=== PATIENT | female | born 1955 | race Caucasian/White ===

== ENCOUNTER 2018-05-22 23:37 | Emergency (ER) | payer OTHER ==
[2018-05-23] MEDS ORDERED: Sodium Chloride 0.9% 2.5 ML Syringe FLUSH PRN (00:26)
[2018-05-23] MEDS ORDERED: Sodium Chloride 0.9% 1,000 ML IV ONE (00:26)
[2018-05-23] MEDS ORDERED: Ondansetron 4 MG/2 ML SDV IVPUSH ONE (00:26)
[2018-05-23] MEDS ORDERED: Pantoprazole 40 MG Vial IVPUSH ONE (00:26)
[2018-05-23] MEDS ORDERED: Sodium Chloride 0.9% 10 ML Syringe FLUSH PRN (00:26)
--- NOTE | 2018-05-23 00:30 | EDM.PDOC ---
ED HPI GENERAL MEDICAL PROBLEM - General Chief Complaint: Gastrointestinal Problem Stated Complaint: PT VOMITING BLOOD Time Seen by Provider: 05/23/18 00:21 - History of Present Illness INITIAL COMMENTS - FREE TEXT/NARRATIVE: HISTORY AND PHYSICAL: History of present illness: The patient is a 63-year-old female with no GI or abdominal surgical history who presents with 3 days of abdominal pain that started mostly in the lower quadrants bilaterally and then this evening was up high in the upper quadrants bilaterally. She says she has a history of heartburn for which she takes over- the-counter meds but has never seen a doctor for evaluation and she also has an intermittent history of constipation but had a bowel movement that was normal today. She says her bowel movement was not black or bloody but tonight with the pain she had new onset of vomiting which she has not had over the last 3 days. Over the last 3 days she has not had any fevers chills chest pain or shortness of breath and no urinary complaints. The patient says that this evening about 2 hours ago she started having nausea and then had an episode of vomiting that there was a blood clot in it. She then had 2 subsequent vomitings which had blood in it and no food. She says that currently she is not having any pain. Not lightheaded or dizzy and has had no syncopal events. She has not taken anything specifically for the pain other than Excedrin and currently she feels better. Review of systems: As per history of present illness and below otherwise all systems reviewed and negative. Past medical history: As per history of present illness and as reviewed below otherwise noncontributory. Surgical history: As per history of present illness and as reviewed below otherwise noncontributory. Social history: No reported history of drug or alcohol abuse. Family history: As per history of present illness and as reviewed below otherwise noncontributory. Physical exam: General: Well-developed well-nourished female who is nontoxic and vital signs are noted by me. HEENT: Atraumatic, normocephalic, , negative for conjunctival pallor or scleral icterus, mucous membranes moist, throat clear, neck supple, nontender, trachea midline. Lungs: Clear to auscultation, breath sounds equal bilaterally, chest nontender. Heart: S1S2, regular rhythm and tachycardic rate on my evaluation but no overt murmurs Abdomen: Soft, nondistended, minimal tenderness in the left lower quadrant and suprapubic areas without rebound or guarding and no upper abdominal or epigastric tenderness on deep palpation. No sounds are hypoactive Negative for masses or hepatosplenomegaly. Negative for costovertebral tenderness. Pelvis: Stable nontender. Genitourinary: Deferred. Rectal: Deferred. Extremities: Atraumatic, negative for cords or calf pain. Neurovascular unremarkable. Neuro: Awake, alert, oriented. Cranial nerves II through XII unremarkable. Cerebellum unremarkable. Motor and sensory unremarkable throughout. Exam nonfocal. Diagnostics: EKG CBC CMP INR amylase lipase UA H. pylori CT scan of the abdomen and pelvis Therapeutics: IV fluids Zofran and Protonix The patient has been asymptomatic with no pain no nausea and no vomiting since she has been here in the ED. Explained to her the CT scan findings with the hepatic and renal cysts which are asymptomatic as well as the sliding gastric hiatal hernia and the early diverticulitis. There was no evidence of any pancreatic disease and as the patient is currently not having any upper abdominal pain nausea or vomiting I have no explanation for the lipase at 536. I will give the patient Zofran Protonix and Cipro and Flagyl to treat the findings that we do have and I stressed to her the need to increase fiber in her diet push hydration and avoid gastric irritating foods. I've also told her that she needs to return to the mid-level provider in our clinic for follow-up care as well as to follow-up with our surgery clinic for further endoscopy as needed and indicated. Advised on reasons to return Impression: Abdominal pain with several episodes of vomiting/hematemesis resolved, early diverticulitis, sliding gastric hiatal hernia Definitive disposition and diagnosis as appropriate pending reevaluation and review of above. - Related Data Allergies Allergy/AdvReac Type Severity Reaction Status Date / Time No Known Allergies Allergy Verified 05/22/18 23:55 Home Meds: Home Meds . [No Known Home Meds] 05/22/18 [History] Past Medical History HEENT History: Reports: Impaired Vision, Other (See Below) Other HEENT History: wears glasses Cardiovascular History: Reports: Hypertension Social & Family History - Family History Family Medical History: Noncontributory - Tobacco Use Smoking Status *Q: Never Smoker - Caffeine Use Caffeine Use: Reports: Coffee Caffeine Use Comment: 2 cups daily - Recreational Drug Use Recreational Drug Use: No ED ROS GENERAL - Review of Systems Review Of Systems: ROS reveals no pertinent complaints other than HPI. ED EXAM, GENERAL - Physical Exam Exam: See Below (See dictation) Course - Vital Signs Last Recorded V/S: Last Vital Signs Temp 36.3 C 05/23/18 02:52 Pulse 109 H 05/23/18 02:52 Resp 18 05/23/18 02:52 BP 142/100 H 05/23/18 02:52 Pulse Ox 100 05/23/18 02:52 - Orders/Labs/Meds Orders: Active Orders 24 hr Category Date Time Status EKG Documentation Completion [RC] STAT Care 05/23/18 00:26 Active Abdomen Pelvis w Cont [CT] Stat Exams 05/23/18 00:26 Taken Sodium Chloride 0.9% [Saline Flush] Med 05/23/18 00:26 Active 10 ml FLUSH ASDIRECTED PRN Sodium Chloride 0.9% [Saline Flush] Med 05/23/18 00:26 Active 2.5 ml FLUSH ASDIRECTED PRN Saline Lock Insert [OM.PC] Stat Oth 05/23/18 00:25 Ordered Medication Orders Sodium Chloride (Saline Flush) 10 ml FLUSH ASDIRECTED PRN PRN Reason: Keep Vein Open Sodium Chloride (Saline Flush) 2.5 ml FLUSH ASDIRECTED PRN PRN Reason: Keep Vein Open Labs: Laboratory Tests 05/23/18 05/23/18 05/23/18 Range/Units 00:10 00:10 00:10 WBC 8.32 (4.0-11.0) K/uL RBC 4.29 L (4.30-5.90) M/uL Hgb 13.1 (12.0-16.0) g/dL Hct 38.5 (36.0-46.0) % MCV 89.7 (80.0-98.0) fL MCH 30.5 (27.0-32.0) pg MCHC 34.0 (31.0-37.0) g/dL RDW Std Deviation 41.8 (28.0-62.0) fl RDW Coeff of Crow 13 (11.0-15.0) % Plt Count 224 (150-400) K/uL MPV 10.80 (7.40-12.00) fL Neut % (Auto) 73.5 (48.0-80.0) % Lymph % (Auto) 14.3 L (16.0-40.0) % Sawyer % (Auto) 10.0 (0.0-15.0) % Eos % (Auto) 2.0 (0.0-7.0) % Baso % (Auto) 0.2 (0.0-1.5) % Neut # (Auto) 6.1 H (1.4-5.7) K/uL Lymph # (Auto) 1.2 (0.6-2.4) K/uL Sawyer # (Auto) 0.8 (0.0-0.8) K/uL Eos # (Auto) 0.2 (0.0-0.7) K/uL Baso # (Auto) 0.0 (0.0-0.1) K/uL Nucleated RBC % 0.0 /100WBC Nucleated RBCs # 0 K/uL INR 1.02 Sodium 137 (136-145) mmol/L Potassium 3.9 (3.5-5.1) mmol/L Chloride 103 (98-107) mmol/L Carbon Dioxide 23.5 (21.0-32.0) mmol/L BUN 20 H (7.0-18.0) mg/dL Creatinine 1.2 H (0.6-1.0) mg/dL Est Cr Clr Drug Dosing 37.95 mL/min Estimated GFR (MDRD) 45.4 ml/min Glucose 115 H (74-106) mg/dL Calcium 10.4 H (8.5-10.1) mg/dL Total Bilirubin 0.4 (0.2-1.0) mg/dL AST 17 (15-37) IU/L ALT 24 (14-63) IU/L Alkaline Phosphatase 80 (46-116) U/L Total Protein 7.7 (6.4-8.2) g/dL Albumin 3.6 (3.4-5.0) g/dL Globulin 4.1 H (2.6-4.0) g/dL Albumin/Globulin Ratio 0.9 (0.9-1.6) Amylase 135 H (25-115) U/L Lipase 536 H (73-393) U/L Urine Color Urine Appearance Urine pH (5.0-8.0) Ur Specific [place] (1.001-1.035) Urine Protein (NEGATIVE) mg/dL Urine Glucose (UA) (NEGATIVE) mg/dL Urine Ketones (NEGATIVE) mg/dL Urine Occult Blood (NEGATIVE) Urine Nitrite (NEGATIVE) Urine Bilirubin (NEGATIVE) Urine Urobilinogen (<2.0) EU/dL Ur Leukocyte Esterase (NEGATIVE) Urine RBC (0-2/HPF) Urine WBC (0-5/HPF) Ur Epithelial Cells (NONE-FEW) Urine Bacteria (NEGATIVE) H. pylori IgG Antibody (NEG) 05/23/18 05/23/18 Range/Units 00:10 00:35 WBC (4.0-11.0) K/uL RBC (4.30-5.90) M/uL Hgb (12.0-16.0) g/dL Hct (36.0-46.0) % MCV (80.0-98.0) fL MCH (27.0-32.0) pg MCHC (31.0-37.0) g/dL RDW Std Deviation (28.0-62.0) fl RDW Coeff of Crow (11.0-15.0) % Plt Count (150-400) K/uL MPV (7.40-12.00) fL Neut % (Auto) (48.0-80.0) % Lymph % (Auto) (16.0-40.0) % Sawyer % (Auto) (0.0-15.0) % Eos % (Auto) (0.0-7.0) % Baso % (Auto) (0.0-1.5) % Neut # (Auto) (1.4-5.7) K/uL Lymph # (Auto) (0.6-2.4) K/uL Sawyer # (Auto) (0.0-0.8) K/uL Eos # (Auto) (0.0-0.7) K/uL Baso # (Auto) (0.0-0.1) K/uL Nucleated RBC % /100WBC Nucleated RBCs # K/uL INR Sodium (136-145) mmol/L Potassium (3.5-5.1) mmol/L Chloride (98-107) mmol/L Carbon Dioxide (21.0-32.0) mmol/L BUN (7.0-18.0) mg/dL Creatinine (0.6-1.0) mg/dL Est Cr Clr Drug Dosing mL/min Estimated GFR (MDRD) ml/min Glucose (74-106) mg/dL Calcium (8.5-10.1) mg/dL Total Bilirubin (0.2-1.0) mg/dL AST (15-37) IU/L ALT (14-63) IU/L Alkaline Phosphatase (46-116) U/L Total Protein (6.4-8.2) g/dL Albumin (3.4-5.0) g/dL Globulin (2.6-4.0) g/dL Albumin/Globulin Ratio (0.9-1.6) Amylase (25-115) U/L Lipase (73-393) U/L Urine Color YELLOW Urine Appearance CLEAR Urine pH 6.5 (5.0-8.0) Ur Specific [place] 1.010 (1.001-1.035) Urine Protein NEGATIVE (NEGATIVE) mg/dL Urine Glucose (UA) NEGATIVE (NEGATIVE) mg/dL Urine Ketones NEGATIVE (NEGATIVE) mg/dL Urine Occult Blood NEGATIVE (NEGATIVE) Urine Nitrite NEGATIVE (NEGATIVE) Urine Bilirubin NEGATIVE (NEGATIVE) Urine Urobilinogen 0.2 (<2.0) EU/dL Ur Leukocyte Esterase TRACE H (NEGATIVE) Urine RBC 0-1 (0-2/HPF) Urine WBC 1-3 (0-5/HPF) Ur Epithelial Cells RARE (NONE-FEW) Urine Bacteria RARE (NEGATIVE) H. pylori IgG Antibody NEGATIVE (NEG) Meds: Medications Generic Name Dose Route Start Last Admin Trade Name Eneida PRN Reason Stop Dose Admin Sodium Chloride 10 ml 05/23/18 00:26 Saline Flush FLUSH ASDIRECTED PRN Keep Vein Open Sodium Chloride 2.5 ml 05/23/18 00:26 Saline Flush FLUSH ASDIRECTED PRN Keep Vein Open Discontinued Medications Generic Name Dose Route Start Last Admin Trade Name Eneida PRN Reason Stop Dose Admin Sodium Chloride 1,000 mls @ 999 mls/hr 05/23/18 00:26 05/23/18 00:35 Normal Saline IV 05/23/18 01:26 999 mls/hr STAT ONE Administration Ondansetron HCl 4 mg 05/23/18 00:26 05/23/18 00:35 Zofran IVPUSH 05/23/18 00:27 4 mg ONETIME ONE Administration Pantoprazole Sodium 80 mg 05/23/18 00:26 05/23/18 00:35 Protonix Iv IVPUSH 05/23/18 00:27 80 mg .BOLUS ONE Administration Departure - Departure Time of Disposition: 03:01 Disposition: Home, Self-Care 01 Condition: Good Clinical Impression: Vomiting, Abdominal pain, Diverticulitis, Hiatal hernia - Discharge Information Referrals: PCP,None [Primary Care Provider] - Forms: ED Department Discharge Additional Instructions: The following information is given to patients seen in the emergency department who are being discharged to home. This information is to outline your options for follow-up care. We provide all patients seen in our emergency department with a follow-up referral. The need for follow-up, as well as the timing and circumstances, are variable depending upon the specifics of your emergency department visit. If you don't have a primary care physician on staff, we will provide you with a referral. We always advise you to contact your personal physician following an emergency department visit to inform them of the circumstance of the visit and for follow-up with them and/or the need for any referrals to a consulting specialist. The emergency department will also refer you to a specialist when appropriate. This referral assures that you have the opportunity for followup care with a specialist. All of these measure are taken in an effort to provide you with optimal care, which includes your followup. Under all circumstances we always encourage you to contact your private physician who remains a resource for coordinating your care. When calling for followup care, please make the office aware that this follow-up is from your recent emergency room visit. If for any reason you are refused follow-up, please contact the [facility] emergency department at and ask to speak to the emergency department charge nurse. [facility]General Surgery Professional Building [address] [place] [address] [address] [place] [address] [facility] Primary care- Internal Medicine and Family [facility] [address] [place] [id number] Please fill the prescription for all medications and take as directed. Push hydration and rest and please increase fiber in your diet. Please call and schedule a follow-up appointment with your provider in the clinic and also schedule an appointment in our surgery clinic for further evaluation for possible endoscopy. Return to ER as needed and as discussed but especially if the abdominal pain returns and you have any more vomiting of blood, fevers or inability to take fluids - My Orders Last 24 Hours: My Active Orders 05/23/18 00:25 Saline Lock Insert [OM.PC] Stat 05/23/18 00:26 EKG Documentation Completion [RC] STAT Abdomen Pelvis w Cont [CT] Stat Sodium Chloride 0.9% [Saline Flush] 10 ml FLUSH ASDIRECTED PRN Sodium Chloride 0.9% [Saline Flush] 2.5 ml FLUSH ASDIRECTED PRN - Assessment/Plan Last 24 Hours: My Active Orders 05/23/18 00:25 Saline Lock Insert [OM.PC] Stat 05/23/18 00:26 EKG Documentation Completion [RC] STAT Abdomen Pelvis w Cont [CT] Stat Sodium Chloride 0.9% [Saline Flush] 10 ml FLUSH ASDIRECTED PRN Sodium Chloride 0.9% [Saline Flush] 2.5 ml FLUSH ASDIRECTED PRN
[2018-05-23] MEDS ORDERED: Ciprofloxacin 500 MG Tab PO ONE (03:05)
--- NOTE | 2018-05-23 12:00 | CT ---
EXAM DATE: 05/22/18 PATIENT'S AGE: 63 Patient: AMPARO ESPINO Facility: [facility], [place], [place] : 1955 Study: CT Abdomen/Pelvis -05/23/2018 2:06:01 AM Ordering Physician: stephanie Final Report: INDICATION: Abdomen, pelvis pain, hematemesis. TECHNIQUE: CT Abdomen and pelvis with i.v. contrast. Coronal and sagittal reformats were obtained. CONTRAST: 50 mL Isovue 370 COMPARISON: None FINDINGS: Lower chest: Unremarkable. Liver: Multiple hepatic cysts present with the largest measuring 5.6 cm in diameter. Spleen: Unremarkable. Pancreas: Unremarkable. Gallbladder: Unremarkable. Kidney: There are numerous bilateral renal cysts present with the largest on the left measuring 8 cm in the largest on the right measuring 8.2 cm and contained thin calcification along its ramirez. Adrenal: Unremarkable. Bowel: Small moderate sliding type gastric hiatal hernia (type IV) is present. Moderate wall thickening is suspected in the sigmoid colon with numerous diverticula and faint inflammatory changes in the surrounding fat. The appendix is not identified. Vascular: Unremarkable. Lymph: Unremarkable. Peritoneum: Unremarkable. No pneumoperitoneum is seen. No significant ascites is noted. Pelvis: Unremarkable. Soft tissue: Unremarkable. Bone: Grade 1 anterolisthesis of L4-5 is seen. IMPRESSIONS: 1. Moderate wall thickening is suspected in the sigmoid colon with numerous diverticula and faint inflammatory changes in the surrounding fat. Findings likely due to acute diverticulitis and imaging follow up is recommended to document resolution. 2. Small moderate sliding type gastric hiatal hernia (type IV) is present. 3. There are numerous bilateral renal cysts present with the largest on the left measuring 8 cm in the largest on the right measuring 8.2 cm and contained thin calcification along its ramirez. Findings likely due to autosomal dominant polycystic kidney disease and correlation at Family history recommended. Dictated by Catarino Rojas MD @ 05/23/2018 2:48:27 AM Please note that all CT scans at this facility use dose modulation, iterative reconstruction, and/or weight-based dosing when appropriate to reduce radiation dose to as low as reasonably achievable. Dictated by: Catarino Rojas MD @ 05/23/2018 02:48:30 (Electronic Signature) Report Signed by Proxy. [facility]
== END 2018-05-23 03:25 | disposition home or self-care (01) ==
LOC: MW.ED 23:37
DX: K57.32 Diverticulitis of large intestine without perforation or abscess without bleeding (principal); K44.9 Diaphragmatic hernia without obstruction or gangrene; I10 Essential (primary) hypertension
CPT/HCPCS: 36415; 74177; 80053; 81001; 82150; 83690; 85025; 85610; 86677; 93005; 96361; 96374; 96375; 99284; C9113; J2405; J7040

== ENCOUNTER 2018-08-01 08:17 | Day surgery (SDC) | payer OTHER ==
[~2018-08-01 08:17] MED LIST: Lactated Ringers 1,000 ML IV SCH; Sodium Chloride 0.9% 10 ML SDV IV PRN; Sodium Chloride 0.9% 10 ML Syringe FLUSH PRN; Sodium Chloride 0.9% 2.5 ML Syringe FLUSH PRN
--- NOTE | 2018-08-01 08:43 | PCM.PREANE ---
Preanesthetic Assessment - Anesthesia/Transfusion/Family Hx Anesthesia History: No Prior Anesthesia Family History of Anesthesia Reaction: No Transfusion History: No Prior Transfusion(s) Intubation History: Unknown - Review of Systems General: No Symptoms Pulmonary: No Symptoms Cardiovascular: No Symptoms Gastrointestinal: Abdominal Pain, Difficulty Swallowing Neurological: No Symptoms Other: Reports: None - Physical Assessment O2 Sat by Pulse Oximetry: 100 Respiratory Rate: 18 Vital Signs: Last Vital Signs Temp 36.0 C 08/01/18 08:35 Pulse 96 08/01/18 08:35 Resp 18 08/01/18 08:35 BP 133/95 H 08/01/18 08:35 Pulse Ox 100 08/01/18 08:35 Height: 1.55 m Weight: 66.678 kg ASA Class: 2 Mental Status: Alert & Oriented x3 Airway Class: Mallampati = 2 Dentition: Reports: Normal Dentition, [place](s) (right side upper and lower (back )), Missing Tooth/Teeth (left back ) Thyro-Mental Finger Breadths: 3 Mouth Opening Finger Breadths: 3 ROM/Head Extension: Full Lungs: Clear to Auscultation, Normal Respiratory Effort Cardiovascular: Regular Rate, Regular Rhythm - Allergies Allergies/Adverse Reactions: Allergies Allergy/AdvReac Type Severity Reaction Status Date / Time No Known Allergies Allergy Verified 07/21/18 08:36 - Blood Blood Available: No - Anesthesia Plan Pre-Op Medication Ordered: None - Acknowledgements Anesthesia Type Planned: MAC Pt an Appropriate Candidate for the Planned Anesthesia: Yes Alternatives and Risks of Anesthesia Discussed w Pt/Guardian: Yes Pt/Guardian Understands and Agrees with Anesthesia Plan: Yes PreAnesthesia Questionnaire HEENT History: Reports: Impaired Vision, Other (See Below) Other HEENT History: wears glasses Cardiovascular History: Reports: Hypertension Respiratory History: Reports: None Gastrointestinal History: Reports: GERD, Hiatal Hernia, Other (See Below) Other Gastrointestinal History: diverticulitis Genitourinary History: Reports: Other (See Below) Other Genitourinary History: polycystic kidneys Musculoskeletal History: Reports: None Neurological History: Reports: None Psychiatric History: Reports: None Endocrine/Metabolic History: Reports: None Hematologic History: Reports: None Immunologic History: Reports: None Oncologic (Cancer) History: Reports: None Dermatologic History: Reports: None - Past Surgical History Head Surgeries/Procedures: Reports: None HEENT Surgical History: Reports: None Cardiovascular Surgical History: Reports: None Respiratory Surgical History: Reports: None GI Surgical History: Reports: None Female Surgical History: Reports: None Endocrine Surgical History: Reports: None Neurological Surgical History: Reports: None Musculoskeletal Surgical History: Reports: None Oncologic Surgical History: Reports: None Dermatological Surgical History: Reports: None - SUBSTANCE USE Smoking Status *Q: Never Smoker - HOME MEDS Home Medications: Home Meds Metoprolol Succinate 25 mg PO DAILY 07/21/18 [History] Pantoprazole Sodium 40 mg PO DAILY 07/21/18 [History] - CURRENT (IN HOUSE) MEDS Current Meds: Current Medications Lactated Ringer's (Ringers, Lactated) 1,000 mls @ 125 mls/hr IV ASDIRECTED EDUARDA Sodium Chloride (Saline Flush) 10 ml FLUSH ASDIRECTED PRN PRN Reason: Keep Vein Open Sodium Chloride (Saline Flush) 2.5 ml FLUSH ASDIRECTED PRN PRN Reason: Keep Vein Open Sodium Chloride (Saline Flush) 10 ml FLUSH ASDIRECTED PRN PRN Reason: Keep Vein Open Sodium Chloride (Saline Flush) 2.5 ml FLUSH ASDIRECTED PRN PRN Reason: Keep Vein Open Sodium Chloride (Normal Saline) 10 ml IV ASDIRECTED PRN PRN Reason: IV Use
[2018-08-01] MEDS ORDERED: Midazolam 1 MG/ML 2 ML SDV ONE (11:07)
[2018-08-01] MEDS ORDERED: fentaNYL 100 MCG/2 ML SDV ONE (11:07)
[2018-08-01] MEDS ORDERED: Propofol 200 MG/20 ML SDV ONE (11:07)
[2018-08-01] MEDS ORDERED: Ondansetron 4 MG/2 ML SDV ONE (11:07)
--- NOTE | 2018-08-01 12:07 | PCM.OPNOTE ---
- General Post-Op/Procedure Note Date of Surgery/Procedure: 08/01/18 Operative Procedure(s): Diagnostic EGD and colonoscopy Findings: Severe distal esophagitis, stricture at GE junction that I was unable to traverse, diverticulosis Pre Op Diagnosis: Hiatal hernia, esophageal stricture, colitis Post-Op Diagnosis: Hiatal hernia associated with esophagitis, esophageal stricture, diverticulosis Anesthesia Technique: [facility] [place] Primary Surgeon: Nieves Logan Condition: Good
--- NOTE | 2018-08-02 13:31 | OR ---
SURGEON: KENISHA CONNELLY MD DATE OF PROCEDURE: 08/01/2018 PREOPERATIVE DIAGNOSES: 1. Hiatal hernia. 2. Esophageal stricture. 3. Colitis. POSTOPERATIVE DIAGNOSES: 1. Hiatal hernia. 2. Severe esophagitis. 3. Esophageal stricture. 4. Diverticulosis. PROCEDURES PERFORMED: Diagnostic esophagogastroduodenoscopy and colonoscopy. ANESTHESIA: MAC. INSTRUMENT USED: Olympus endoscope and colonoscope. EXTENT OF EXAM: To the distal esophagus, to the cecum. PREPARATION: Good. LIMITATIONS: Severe esophagitis, and stricture of the esophagus. INDICATIONS: The patient is a 63-year-old female who presented to my clinic after recent visit to the emergency room. She has been having abdominal pain for three days associated with nausea and vomiting. Her vitals were stable at the time of her ER visit. She was found to have polycystic kidney disease, which runs in her family. She was also found to have a hiatal hernia with approximately 1/3rd of her stomach and her chest. She also had moderate thickening suspected within the sigmoid colon with numerous diverticula and faint inflammatory changes that was felt to be likely due to acute diverticulitis. She was started on Cipro and Flagyl as well as pantoprazole. After taking these medications, her abdominal pain resolved and her reflux has improved. She underwent a diagnostic esophagram, which showed severe stricturing of the distal esophagus. The patient and I discussed the need for diagnostic EGD and colonoscopy. I explained the procedure, expected perioperative course, and risks including bleeding, infection, or damage to surrounding structures including perforation. The patient verbalized understanding and wishes to proceed. PROCEDURE IN DETAIL: The patient was brought into the endoscopy suite and placed in a left lateral decubitus position. A time-out was completed verifying the patient's name, age, date of , allergies, and procedure to be performed. A bite block was placed in the patient's mouth. Monitored anesthesia care was induced and continuous oxygen was provided via nasal cannula throughout the procedure. After adequate sedation was achieved, a well lubricated endoscope was placed in the patient's mouth and advanced under direct visualization. Upon reaching the distal esophagus, I noted severe inflammation and a tight stricture. Multiple photographs of this were taken with normal imaging as well as narrow band imaging. Several biopsies were taken of the distal esophagus and sent to Pathology, labeled as esophagus. I was unable to transverse scope past the stricture and so I pulled the scope back. The proximal esophagus appeared normal. The scope was removed and this portion of procedure terminated. Digital rectal exam was then performed. This exam was within normal limits. A well lubricated colonoscope was inserted into the rectum and advanced under direct visualization to the level of cecum. This was somewhat difficult, given the tortuosity of her sigmoid colon. The cecum, however, was reached successfully. Identified it by both visual and anatomic landmarks. A photograph was taken of the cecal cap as well as with the scope retroflexed within the cecum. The scope was then straightened out and fully withdrawn while examining the color, texture, anatomy, and integrity of mucosa from the cecum to the anal canal. There was no evidence of any inflammation or masses within the sigmoid colon. There was multiple diverticula throughout. The scope was then brought into the rectum and retroflexed to allow visualization of the anal canal opening. This appeared normal and a photograph was taken. The scope was then straightened out and fully withdrawn. The cecum to anus time was 7 minutes. The patient tolerated the procedure well and was taken to PACU in stable condition. ENDOSCOPIC DIAGNOSES: 1. Hiatal hernia. 2. Severe esophagitis. 3. Esophageal stricture. 4. Diverticulosis. RECOMMENDATIONS: The patient should continue on pantoprazole. I will follow up with her regarding the biopsy result in the next steps in management of her hiatal hernia, which is causing an esophageal stricture and severe esophagitis. LEVY PULIDO /[id number]
== END 2018-08-01 12:48 | disposition home or self-care (01) ==
LOC: MW.SDS 08:17
PROVIDERS: ATTEND Surgery
DX: K22.2 Esophageal obstruction (principal); K22.10 Ulcer of esophagus without bleeding; K44.9 Diaphragmatic hernia without obstruction or gangrene; K57.30 Diverticulosis of large intestine without perforation or abscess without bleeding; I10 Essential (primary) hypertension; Q61.3 Polycystic kidney, unspecified; Z87.19 Personal history of other diseases of the digestive system; Z79.899 Other long term (current) drug therapy
CPT/HCPCS: 43202; 45378; J2001; J2250; J2405; J2704; J3010; J7120; 88305

== ENCOUNTER 2018-11-09 08:59 | Day surgery (SDC) | payer OTHER ==
--- NOTE | 2018-11-09 09:38 | PCM.PREANE ---
Preanesthetic Assessment - Anesthesia/Transfusion/Family Hx Anesthesia History: Prior Anesthesia Without Reaction Family History of Anesthesia Reaction: No Transfusion History: No Prior Transfusion(s) Intubation History: Unknown - Review of Systems General: No Symptoms Pulmonary: No Symptoms Cardiovascular: No Symptoms Gastrointestinal: No Symptoms Neurological: No Symptoms Other: Reports: None - Physical Assessment Height: 5 ft 2 in Weight: 71.214 kg ASA Class: 2 Mental Status: Alert & Oriented x3 Airway Class: Mallampati = 2 Dentition: Reports: Normal Dentition ROM/Head Extension: Full Lungs: Clear to Auscultation, Normal Respiratory Effort Cardiovascular: Regular Rate, Regular Rhythm - Allergies Allergies/Adverse Reactions: Allergies Allergy/AdvReac Type Severity Reaction Status Date / Time No Known Allergies Allergy Verified 11/06/18 09:50 - Blood Blood Available: No - Anesthesia Plan Pre-Op Medication Ordered: None - Acknowledgements Anesthesia Type Planned: General Anesthesia Pt an Appropriate Candidate for the Planned Anesthesia: Yes Alternatives and Risks of Anesthesia Discussed w Pt/Guardian: Yes Pt/Guardian Understands and Agrees with Anesthesia Plan: Yes Additional Comments: anes prob list: htn PLAN: tiva PreAnesthesia Questionnaire HEENT History: Reports: Glaucoma, Impaired Vision, Other (See Below) Other HEENT History: wears glasses Cardiovascular History: Reports: Hypertension Respiratory History: Reports: None Gastrointestinal History: Reports: GERD, Hiatal Hernia, Pancreatitis, Other ( See Below) Other Gastrointestinal History: diverticulitis, hx of Esophageal structure Genitourinary History: Reports: Other (See Below) Other Genitourinary History: polycystic kidneys Musculoskeletal History: Reports: Fracture Other Musculoskeletal History: hx of fx finger as a child Neurological History: Reports: Other (See Below) Other Neuro History: hx of motion sickness Psychiatric History: Reports: None Endocrine/Metabolic History: Reports: None, Osteopenia Hematologic History: Reports: None Immunologic History: Reports: None Oncologic (Cancer) History: Reports: None Dermatologic History: Reports: None - Past Surgical History Head Surgeries/Procedures: Reports: None HEENT Surgical History: Reports: None Cardiovascular Surgical History: Reports: None Respiratory Surgical History: Reports: None GI Surgical History: Reports: Colonoscopy, EGD Female Surgical History: Reports: None Endocrine Surgical History: Reports: None Neurological Surgical History: Reports: None Musculoskeletal Surgical History: Reports: None Oncologic Surgical History: Reports: None Dermatological Surgical History: Reports: None - SUBSTANCE USE Smoking Status *Q: Never Smoker Recreational Drug Use History: No - HOME MEDS Home Medications: Home Meds Metoprolol Succinate 25 mg PO QAM 07/21/18 [History] Pantoprazole Sodium 40 mg PO DAILY 07/21/18 [History] Alendronate Sodium 70 mg PO WEEKLY 11/06/18 [History] - CURRENT (IN HOUSE) MEDS Current Meds: Current Medications Lactated Ringer's (Ringers, Lactated) 1,000 mls @ 125 mls/hr IV ASDIRECTED EDUARDA Sodium Chloride (Saline Flush) 10 ml FLUSH ASDIRECTED PRN PRN Reason: Keep Vein Open Sodium Chloride (Saline Flush) 2.5 ml FLUSH ASDIRECTED PRN PRN Reason: Keep Vein Open Sodium Chloride (Normal Saline) 10 ml IV ASDIRECTED PRN PRN Reason: IV Use
[2018-11-09] MEDS ORDERED: Propofol 200 MG/20 ML SDV ONE (10:43)
[2018-11-09] MEDS ORDERED: Lidocaine 2% 5 ML SDV ONE (10:44)
--- NOTE | 2018-11-09 13:18 | PCM.OPNOTE ---
- General Post-Op/Procedure Note Date of Surgery/Procedure: 11/09/18 Operative Procedure(s): Diagnostic EGD Findings: Severe ulceration and stricture at the GE junction Pre Op Diagnosis: Hiatal hernia with esophagitis and GERD and stricture Post-Op Diagnosis: same Anesthesia Technique: MAC Primary Surgeon: Nieves Logan Condition: Good Free Text/Narrative:: Intake & Output 11/08/18 11/09/18 11/09/18 22:59 06:59 14:59 Intake Total 750 Balance 750
--- NOTE | 2018-11-10 12:16 | OR ---
SURGEON: NIEVES LOGAN MD DATE OF PROCEDURE: 11/09/2018 PREOPERATIVE DIAGNOSIS: Hiatal hernia with gastroesophageal reflux disease and esophagitis. POSTOPERATIVE DIAGNOSIS: Hiatal hernia with gastroesophageal reflux disease and esophagitis. PROCEDURE PERFORMED: Diagnostic esophagogastroduodenoscopy. PRIMARY SURGEON: Nieves Logan MD. ANESTHESIA: MAC. INSTRUMENT USED: Olympus endoscope. EXTENT OF EXAM: To the distal esophagus. PREPARATION: Good. LIMITATIONS: Stricture at the level of the GE junction. INDICATIONS: The patient is a 63-year-old female on whom I performed a diagnostic EGD 3 months ago. She was found to have a hiatal hernia associated with severe esophagitis and GERD. She also had a stricture at the GE junction that I was unable to transverse. The patient has been on pantoprazole daily for the last 2 months and reports an improvement in her pain and swallowing. The decision was made to proceed with a repeat EGD to ensure that things have healed. I explained the procedure, expected perioperative course, and risks including bleeding, infection, or damage to surrounding structures including perforation. The patient verbalized understanding and wishes to proceed. PROCEDURE IN DETAIL: The patient was brought into the endoscopy suite and placed in a beach chair position. A time-out was completed verifying the patient's name, age, date of , allergies, and procedure to be performed. A bite block was placed in the patient's mouth. Monitored anesthesia care was induced and continuous oxygen was provided via nasal cannula throughout the procedure. After adequate sedation was achieved, a well lubricated endoscope was placed in the patient's mouth and advanced under direct visualization into the esophagus. Upon reaching the distal esophagus, I again noted severe inflammation of the mucosa. There were ulcers and stricture that I was unable to transverse at the GE junction. Multiple photographs of this were taken. Biopsies were taken again along the ulcerated and friable tissue. These were sent to Pathology, labeled as esophageal biopsy. I closely monitored my biopsy sites. Once hemostasis was ensured, I then removed the scope. The patient tolerated the procedure well and was transferred to the PACU in stable condition. ENDOSCOPIC DIAGNOSIS: Hiatal hernia with gastroesophageal reflux disease and esophagitis. RECOMMENDATIONS: We will follow up with the patient in clinic in 2 weeks to discuss her biopsy results. She will likely need a referral to a mail carriers supervisor and/or surgeon to discuss the next steps in treatment. LEVY PULIDO /[id number]
== END 2018-11-09 11:53 | disposition home or self-care (01) ==
LOC: MW.SDS 08:59
PROVIDERS: ATTEND Surgery
DX: K21.0 Gastro-esophageal reflux disease with esophagitis (principal); K22.10 Ulcer of esophagus without bleeding; K22.2 Esophageal obstruction; K44.9 Diaphragmatic hernia without obstruction or gangrene; I10 Essential (primary) hypertension; M85.80 Other specified disorders of bone density and structure, unspecified site; Z79.899 Other long term (current) drug therapy
CPT/HCPCS: 00731; J2001; J2704

== ENCOUNTER 2019-09-05 15:04 | Emergency (ER) | payer OTHER ==
--- NOTE | 2019-09-05 16:00 | EDM.PDOC ---
ED HPI GENERAL MEDICAL PROBLEM - General Chief Complaint: Head Injury Stated Complaint: FELL HURT RT WRIST AND LEG Time Seen by Provider: 09/05/19 15:06 Source of Information: Reports: Patient History Limitations: Reports: No Limitations - History of Present Illness INITIAL COMMENTS - FREE TEXT/NARRATIVE: HISTORY AND PHYSICAL: History of present illness: Patient is a 64-year-old female who presents to the ED today with concern of a fall that occurred just prior to arrival to the ED. Patient states she was outside and wearing flip-flops and her shoe caught the crack of the sidewalk and she fell. Patient states she landed on her knees and tried to catch herself with her right hand but did hit her chin on the cement. Patient denies any loss of consciousness during the event and states that she did not feel dizzy or lightheaded before the fall. Patient states the most pain is her right wrist and her right knee but states that her left knee is also bothering her. Patient denies any health history or any other symptoms or concerns. Patient states she does not take any blood thinning medication. Patient denies fever, chills, chest pain, shortness of breath, or cough. Denies headache, neck stiff ness, change in vision, syncope, or near syncope. Denies nausea, vomiting, abdominal pain, diarrhea, constipation, or dysuria. Has not noted any blood in urine or stool. Patient has been eating and drinking appropriately. Review of systems: As per history of present illness and below otherwise all systems reviewed and negative. Past medical history: As per history of present illness and as reviewed below otherwise noncontributory. Surgical history: As per history of present illness and as reviewed below otherwise noncontributory. Social history: See social history for further information Family history: As per history of present illness and as reviewed below otherwise noncontributory. Physical exam: General: Patient is alert, oriented, and in no acute distress. Patient sitting comfortably on exam table and did ambulate into the ED today. HEENT: There is a 1 cm circular bruise/contusion over the chin without bleeding or laceration. No crepitus/step offs to palpation of this area. Otherwise, atraumatic, normocephalic, pupils equal and reactive bilaterally, negative for conjunctival pallor or scleral icterus, mucous membranes moist, TMs normal bilaterally, throat clear, neck supple, nontender, trachea midline. No drooling or trismus noted. No meningeal signs. No hot potato voice noted. Lungs: Clear to auscultation, breath sounds equal bilaterally, chest nontender. Heart: S1S2, regular rate and rhythm without overt murmur Abdomen: Soft, nondistended, nontender. Negative for masses or hepatosplenomegaly. Negative for costovertebral tenderness. Pelvis: Stable nontender. Genitourinary: Deferred. Rectal: Deferred. Skin: Intact, warm, dry. No lesions or rashes noted. Extremities/musculoskeletal: Superficial abrasions to bilateral knees without bleeding. No obvious deformity of the bilateral upper or lower extremities. Patient does have full ROM of all extremities without deficit but does have pain with ROM of the right knee and right wrist. Dorsalis pedis and posterior tibial pulses are grossly intact bilaterally with capillary refill less than 2 seconds. Radial pulses are grossly intact bilaterally with capillary refill less than 2 seconds. Otherwise, atraumatic, negative for cords or calf pain. Neurovascular unremarkable. No obvious deformity of the complete spine. No step-offs, crepitus, or point tenderness to palpation of the complete spine. Neuro: Awake, alert, oriented. Cranial nerves II through XII unremarkable. Cerebellum unremarkable. Motor and sensory unremarkable throughout. Exam nonfocal. Notes: Discussed the importance for follow-up with primary care provider. Voices understanding and is agreeable to plan of care. Denies any further questions or concerns at this time. Diagnostics: Bilateral knee XR (Patient declines XR of left knee), right wrist XR, CXR, CBC, CMP, Trop, EKG, lipase, UA Therapeutics: Right knee sleeve, PREM wrap Prescription: None Impression: Right wrist injury Bilateral knee injury Superficial abrasion, bilateral knee Plan: 1. Rest, ice, elevate the affected extremity/areas. You can apply ice 15 minutes on, 15 minutes off. 2. Tylenol and/or Ibuprofen as directed for pain management or discomfort. 3. Follow up with the primary care provider as discussed. Return to the ED as needed and as discussed. Definitive disposition and diagnosis as appropriate pending reevaluation and review of above. right knee/wrist Pain Score (Numeric/FACES): 8 - Related Data Allergies Allergy/AdvReac Type Severity Reaction Status Date / Time No Known Allergies Allergy Verified 11/06/18 09:50 Home Meds: Home Meds RX: Metoprolol Succinate 25 mg PO QAM 07/21/18 [History] RX: Pantoprazole Sodium 40 mg PO DAILY 07/21/18 [History] RX: Alendronate Sodium 70 mg PO WEEKLY 11/06/18 [History] Past Medical History HEENT History: Reports: Glaucoma, Impaired Vision, Other (See Below) Other HEENT History: wears glasses Cardiovascular History: Reports: Hypertension Respiratory History: Reports: None Gastrointestinal History: Reports: GERD, Hiatal Hernia, Pancreatitis, Other ( See Below) Other Gastrointestinal History: diverticulitis, hx of Esophageal structure Genitourinary History: Reports: Other (See Below) Other Genitourinary History: polycystic kidneys 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 Musculoskeletal History: Reports: Fracture Other Musculoskeletal History: hx of fx finger as a child Neurological History: Reports: Other (See Below) Other Neuro History: hx of motion sickness Psychiatric History: Reports: None Endocrine/Metabolic History: Reports: None, Osteopenia Hematologic History: Reports: None Immunologic History: Reports: None Oncologic (Cancer) History: Reports: None Dermatologic History: Reports: None - Infectious Disease History Infectious Disease History: Reports: Chicken Pox, Measles, Mumps - Past Surgical History Head Surgeries/Procedures: Reports: None HEENT Surgical History: Reports: None Cardiovascular Surgical History: Reports: None Respiratory Surgical History: Reports: None GI Surgical History: Reports: Colonoscopy, EGD Female Surgical History: Reports: None Endocrine Surgical History: Reports: None Neurological Surgical History: Reports: None Musculoskeletal Surgical History: Reports: None Oncologic Surgical History: Reports: None Dermatological Surgical History: Reports: None Social & Family History - Family History Family Medical History: Noncontributory - Tobacco Use Smoking Status *Q: Never Smoker Second Hand Smoke Exposure: No - Caffeine Use Caffeine Use: Reports: None Caffeine Use Comment: 2 cups daily - Recreational Drug Use Recreational Drug Use: No ED ROS GENERAL - Review of Systems Review Of Systems: Comprehensive ROS is negative, except as noted in HPI. ED EXAM, HEAD INJURY - Physical Exam Exam: See Below (see dictation) Course - Vital Signs Last Recorded V/S: Last Vital Signs Temp 96.6 F L 09/05/19 15:30 Pulse 100 09/05/19 15:30 Resp 18 09/05/19 15:30 BP 133/88 09/05/19 15:30 Pulse Ox 100 09/05/19 15:30 - Orders/Labs/Meds Orders: Active Orders 24 hr Category Date Time Status EKG Documentation Completion [RC] STAT Care 09/05/19 15:40 Active UA RFX OMERO AND CULT IF INDIC [URIN] Stat Lab 09/05/19 15:40 Ordered Labs: Laboratory Tests 09/05/19 09/05/19 Range/Units 15:49 15:49 WBC 5.90 (4.0-11.0) K/uL RBC 4.07 L (4.30-5.90) M/uL Hgb 11.7 L (12.0-16.0) g/dL Hct 35.8 L (36.0-46.0) % MCV 88.0 (80.0-98.0) fL MCH 28.7 (27.0-32.0) pg MCHC 32.7 (31.0-37.0) g/dL RDW Std Deviation 43.8 (28.0-62.0) fl RDW Coeff of Crow 14 (11.0-15.0) % Plt Count 194 (150-400) K/uL MPV 10.90 (7.40-12.00) fL Neut % (Auto) 74.1 (48.0-80.0) % Lymph % (Auto) 16.6 (16.0-40.0) % [place] % (Auto) 7.3 (0.0-15.0) % Eos % (Auto) 1.7 (0.0-7.0) % Baso % (Auto) 0.3 (0.0-1.5) % Neut # (Auto) 4.4 (1.4-5.7) K/uL Lymph # (Auto) 1.0 (0.6-2.4) K/uL [place] # (Auto) 0.4 (0.0-0.8) K/uL Eos # (Auto) 0.1 (0.0-0.7) K/uL Baso # (Auto) 0.0 (0.0-0.1) K/uL Nucleated RBC % 0.0 /100WBC Nucleated RBCs # 0 K/uL Sodium 136 (136-145) mmol/L Potassium 4.2 (3.5-5.1) mmol/L Chloride 102 (98-107) mmol/L Carbon Dioxide 25.5 (21.0-32.0) mmol/L BUN 29 H (7.0-18.0) mg/dL Creatinine 1.0 (0.6-1.0) mg/dL Est Cr Clr Drug Dosing 44.95 mL/min Estimated GFR (MDRD) 55.8 ml/min Glucose 125 H (74-106) mg/dL Calcium 8.9 (8.5-10.1) mg/dL Total Bilirubin 0.2 (0.2-1.0) mg/dL AST 21 (15-37) IU/L ALT 25 (14-63) IU/L Alkaline Phosphatase 76 (46-116) U/L Troponin I < 0.050 (0.000-0.056) ng/mL Total Protein 6.9 (6.4-8.2) g/dL Albumin 3.6 (3.4-5.0) g/dL Globulin 3.3 (2.6-4.0) g/dL Albumin/Globulin Ratio 1.1 (0.9-1.6) Lipase 365 (73-393) U/L Departure - Departure Time of Disposition: 16:44 Disposition: Home, Self-Care 01 Clinical Impression: Superficial abrasion Wrist injury Qualifiers: Encounter type: initial encounter Laterality: right Qualified Code(s): S69.91XA - Unspecified injury of right wrist, hand and finger(s), initial encounter Knee injury Qualifiers: Encounter type: initial encounter Laterality: unspecified laterality Qualified Code(s): S89.90XA - Unspecified injury of unspecified lower leg, initial encounter - Discharge Information Referrals: Courtney Mariscal PA [Primary Care Provider] - Forms: ED Department Discharge Additional Instructions: The following information is given to patients seen in the emergency department who are being discharged to home. This information is to outline your options for follow-up care. We provide all patients seen in our emergency department with a follow-up referral. The need for follow-up, as well as the timing and circumstances, are variable depending upon the specifics of your emergency department visit. If you don't have a primary care physician on staff, we will provide you with a referral. We always advise you to contact your personal physician following an emergency department visit to inform them of the circumstance of the visit and for follow-up with them and/or the need for any referrals to a consulting specialist. The emergency department will also refer you to a specialist when appropriate. This referral assures that you have the opportunity for follow-up care with a specialist. All of these measure are taken in an effort to provide you with optimal care, which includes your follow-up. Under all circumstances we always encourage you to contact your private physician who remains a resource for coordinating your care. When calling for follow-up care, please make the office aware that this follow-up is from your recent emergency room visit. If for any reason you are refused follow-up, please contact the [facility] Emergency Department at and asked to speak to the emergency department charge nurse. [facility] [address] [place], [place] [id number] [place] [address] 1. Rest, ice, elevate the affected extremity/areas. You can apply ice 15 minutes on, 15 minutes off. 2. Tylenol and/or Ibuprofen as directed for pain management or discomfort. 3. Follow up with the primary care provider as discussed. Return to the ED as needed and as discussed. Sepsis Event Note - Evaluation Sepsis Screening Result: No Definite Risk - Focused Exam Vital Signs: Vital Signs Temp Pulse Resp BP Pulse Ox 09/05/19 15:30 96.6 F L 100 18 133/88 100 Date Exam was Performed: 09/05/19 Time Exam was Performed: 16:46 - My Orders Last 24 Hours: My Active Orders 09/05/19 15:40 EKG Documentation Completion [RC] STAT UA RFX OMERO AND CULT IF INDIC [URIN] Stat - Assessment/Plan Last 24 Hours: My Active Orders 09/05/19 15:40 EKG Documentation Completion [RC] STAT UA RFX OMERO AND CULT IF INDIC [URIN] Stat
[2019-09-05 16:19] LABS: CARBON DIOXIDE,CO2 25.5 mmol/L (21.0-32.0); CHLORIDE,CL 102 mmol/L (98-107); GLUCOSE RANDOM 125 mg/dL (74-106); LIPASE 365 U/L (73-393); POTASSIUM,K 4.2 mmol/L (3.5-5.1); SODIUM,NA 136 mmol/L (136-145)
[2019-09-05 16:26] LABS: BLOOD UREA NITROGEN,BUN 29 mg/dL (7.0-18.0)
--- NOTE | 2019-09-05 16:39 | CR ---
Chest: Portable view of the chest was obtained. Comparison: No prior chest imaging. Heart size and mediastinum are within normal limits for portable technique. Lungs are clear with no acute parenchymal change. Bony structures are grossly intact. Impression: 1. Nothing acute is appreciated on portable chest x-ray. Diagnostic code #1 This report was dictated in MDT
--- NOTE | 2019-09-05 16:40 | CR ---
Right wrist: 3 views of the right wrist were obtained. Comparison: No previous wrist study. Joint spaces within the wrist are preserved. No fracture, dislocation or other bony abnormality is seen. Impression: 1. No abnormality is identified on right wrist exam. Diagnostic code #1 This report was dictated in MDT
--- NOTE | 2019-09-05 16:40 | CR ---
Right knee: AP, lateral and sunrise patellar views of the right knee were obtained. Small calcified loose body identified anteriorly within the lateral knee. Small joint effusion is seen. Patellofemoral joint appears normal. No fracture or other bony abnormality is appreciated. Impression: 1. Small calcified loose body as described above. 2. Small joint effusion. Diagnostic code #3 This report was dictated in MDT
== END 2019-09-05 17:02 | disposition home or self-care (01) ==
LOC: MW.ED 15:04
DX: S00.83XA Contusion of other part of head, initial encounter (principal); S80.212A Abrasion, left knee, initial encounter; S80.211A Abrasion, right knee, initial encounter; S69.91XA Unspecified injury of right wrist, hand and finger(s), initial encounter; I10 Essential (primary) hypertension; K21.9 Gastro-esophageal reflux disease without esophagitis; Z79.899 Other long term (current) drug therapy; W19.XXXA Unspecified fall, initial encounter
CPT/HCPCS: 36415; 71045; 71045-26; 73110-26-RT; 73110-RT; 73562-26-RT; 73562-RT; 80053; 83690; 84484; 85025; 93005; 99284; 99284-25

== ENCOUNTER 2024-07-08 20:47 | Emergency (ER) | payer MEDICARE, OTHER ==
[2024-07-08] MEDS ORDERED: Sodium Chloride 0.9% 2.5 ML Syringe FLUSH PRN (21:07)
[2024-07-08] MEDS ORDERED: Sodium Chloride 0.9% 10 ML Syringe FLUSH PRN (21:07)
[2024-07-08] MEDS: Morphine 4 MG/ML Syringe IVPUSH ONE ×3 (21:16→23:41)
[2024-07-08] MEDS: Ondansetron 4 MG/2 ML SDV IVPUSH ONE (21:16)
[2024-07-08 21:25] LABS: BASOPHILS ABSOLUTE AUTO 0.04 K/uL (0.00-0.20); BASOPHILS PERCENT AUTO 0.6 % (0.0-1.0); EOSINOPHILS ABSOLUTE AUTO 0.09 K/uL (0.00-0.45); EOSINOPHILS PERCENT AUTO 1.4 % (0.0-6.0); HEMATOCRIT 35.8 % (37.0-47.0); HEMOGLOBIN 12.4 g/dL (12.0-16.0); IMMATURE GRAN ABSOLUTE AUTO 0.02 K/uL (0.00-0.05); IMMATURE GRAN PERCENT AUTO 0.3 % (0.0-0.4); LYMPHOCYTES ABSOLUTE AUTO 1.55 K/uL (1.00-4.80); LYMPHOCYTES PERCENT AUTO 23.9 % (24.0-44.0); MEAN CORPUSCULAR HEMOGLOBIN 31.2 pg (28.0-32.0); MEAN CORPUSCULAR HGB CONC 34.6 g/dL (32.0-36.0); MEAN CORPUSCULAR VOLUME 90.2 fL (83.0-99.0); MEAN PLATELET VOLUME 10.3 fL (9.4-12.3); MONOCYTES ABSOLUTE AUTO 0.47 K/uL (0.00-0.80); MONOCYTES PERCENT AUTO 7.3 % (0.0-8.0); NEUTROPHILS ABSOLUTE AUTO 4.31 K/uL (1.80-7.70); NEUTROPHILS PERCENT AUTO 66.5 % (41.0-71.0); PLATELET COUNT,PLT 176 K/uL (150-400); RED BLOOD CELL COUNT 3.97 M/uL (4.10-5.30); WHITE BLOOD CELL COUNT,WBC 6.48 K/uL (3.9-11.3)
[2024-07-08 21:57] LABS: CALCIUM 8.3 mg/dL (8.5-10.1); CARBON DIOXIDE,CO2 24.1 mmol/L (21.0-32.0); EST CRCL DRUG DOSING (CG) 41.99 mL/min; POTASSIUM,K 3.7 mmol/L (3.5-5.1)
[2024-07-08] MEDS: Iopamidol 755 MG/ML 500 ML Multipack Bottle IVPUSH ONE (22:28)
[2024-07-08] MEDS: Sodium Chloride 0.9% 500 ML IV SCH (23:26)
[2024-07-08] MEDS: Lidocaine 1% 20 ML MDV ONE (23:37)
[2024-07-08] MEDS: Lidocaine 1% 10 ML MDV INJECT ONE (23:37)
[2024-07-09] MEDS: Morphine 4 MG/ML Syringe ONE (00:08)
[2024-07-09] MEDS: Ondansetron 4 MG/2 ML SDV IVPUSH ONE (00:09)
[2024-07-09] MEDS: Iopamidol 755 MG/ML 500 ML Multipack Bottle IVPUSH ONE (00:22)
[2024-07-09] MEDS: Morphine 4 MG/ML Syringe IVPUSH ONE (01:53)
== END 2024-07-09 02:15 ==
LOC: MW.ED 20:47
DX: S27.0XXA Traumatic pneumothorax, initial encounter (principal); S27.321A Contusion of lung, unilateral, initial encounter; S22.5XXA Flail chest, initial encounter for closed fracture; I10 Essential (primary) hypertension; Z79.899 Other long term (current) drug therapy; W18.2XXA Fall in (into) shower or empty bathtub, initial encounter
CPT/HCPCS: 32551; 36415; 70450; 71045; 71260; 72125; 73030; 74177; 80048; 85025; 96361; 96374; 96375; 96376; 99285; J2270; J2405; J7040; Q9967; J3490